=== PATIENT | female | born 1970 | race Hispanic/Latino ===

== ENCOUNTER 2017-04-14 10:02 | Outpatient (CLI) | payer BC | END 2017-04-14 10:03 | disposition home or self-care (01) | LOC: BICULT 10:02 | PROVIDERS: ATTEND Family Medicine | DX: N91.2 Amenorrhea, unspecified (principal); R11.2 Nausea with vomiting, unspecified; K76.0 Fatty (change of) liver, not elsewhere classified | CPT/HCPCS: 71046; 76700; 76856 ==

== ENCOUNTER 2017-12-09 14:30 | Outpatient (CLI) | payer BC ==
--- NOTE | 2017-12-09 17:15 | RAD ---
CHEST PA AND LATERAL: HISTORY: A 47-year-old female with a history of shortness of breath for days with chest congestion. FINDINGS: Heart size is within normal limits. The lungs are clear. No pneumonia, edema, or other acute proces s. Evidence for right-sided shoulder calcific peritendinosis. IMPRESSION: No significant acute intrathoracic disease. POS: [facility]
== END 2017-12-09 14:31 | disposition home or self-care (01) ==
LOC: BICRAD 14:30
PROVIDERS: ATTEND Family Medicine
DX: R06.02 Shortness of breath (principal)
CPT/HCPCS: 71046

== ENCOUNTER 2017-12-15 15:20 | Outpatient (CLI) | payer BC | END 2017-12-15 15:21 | disposition home or self-care (01) | LOC: BICMAMMO 15:20 | PROVIDERS: ATTEND Family Medicine | DX: Z12.31 Encounter for screening mammogram for malignant neoplasm of breast (principal) | CPT/HCPCS: 77063; 77067 ==

== ENCOUNTER 2018-03-10 07:32 | Outpatient (CLI) | payer BC ==
--- NOTE | 2018-03-10 08:13 | ULT ---
SONOGRAM RIGHT UPPER QUADRANT: Date: 03/10/18 HISTORY: Abnormal liver function tests. FINDINGS: Gallbladder has a normal appearance without evidence of stones. Common duct is 0.4 cm. Liver is diffu sely echogenic without focal mass or intrahepatic biliary dilatation. No free fluid. IMPRESSION: 1. No evidence of gallstones or biliary obstruction. 2. Hepatosteatosis. POS: [facility]
== END 2018-03-10 07:33 | disposition home or self-care (01) ==
LOC: BICULT 07:32
PROVIDERS: ATTEND Family Medicine
DX: R79.89 Other specified abnormal findings of blood chemistry (principal); K76.0 Fatty (change of) liver, not elsewhere classified
CPT/HCPCS: 76705

== ENCOUNTER 2018-12-21 15:50 | Outpatient (CLI) | payer BC ==
--- NOTE | 2018-12-21 16:26 | MMO ---
Bilateral MAMMO Bilat Screen [facility]. CLINICAL HISTORY: Patient is 48 years old and is seen for screening. The patient has no family history of breast cancer. The patient has no personal history of cancer. VIEWS: The views performed were: bilateral craniocaudal with tomosynthesis and bilateral mediolateral oblique with tomosynthesis. FILMS COMPARED: The present examination has been compared to prior imaging studies performed at [facility] on 08/13/2014, 10/01/2015, 12/02/2016 and 12/15/2017. This study has been interpreted with the assistance of computer-aided detection. MAMMOGRAM FINDINGS: The breasts are heterogeneously dense, which could obscure a lesion on mammography. There are stable benign appearing calcifications seen in both breasts. There are no suspicious masses, suspicious calcifications, or new areas of architectural distortion. IMPRESSION: THERE IS NO MAMMOGRAPHIC EVIDENCE OF MALIGNANCY. A ROUTINE FOLLOW-UP MAMMOGRAM IN 1 YEAR IS RECOMMENDED. THE RESULTS OF THIS EXAM WERE SENT TO THE PATIENT. ACR BI-RADS Category 2 - Benign finding MAMMOGRAPHY NOTE: 1. A negative mammogram report should not delay a biopsy if a dominant of clinically suspicious mass is present. 2. Approximately 10% to 15% of breast cancers are not detected by mammography. 3. Adenosis and dense breasts may obscure an underlying neoplasm. Reported by: ROLY BAKER MD Electonically Signed: [id number]
== END 2018-12-21 15:51 | disposition home or self-care (01) ==
LOC: BICMAMMO 15:50
PROVIDERS: ATTEND Family Medicine
DX: Z12.31 Encounter for screening mammogram for malignant neoplasm of breast (principal)
CPT/HCPCS: 77063; 77067

== ENCOUNTER 2020-01-17 15:47 | Outpatient (CLI) | payer BC ==
--- NOTE | 2020-01-17 16:42 | RAD ---
EXAM: CHEST TWO VIEWS 01/17/2020 4:39 PM HISTORY: Shortness of breath COMPARISON: December 09, 2017 FINDINGS: Lungs: No acute airspace consolidation. Heart: Normal in size and contour. Pulmonary Vessels: Normal. Costophrenic Angles: Clear. Pneumothorax: None. Osseous Structures: There is scattered degenerative and osteoarthritic change present. Additional Findings: None. IMPRESSION: No significant acute intrathoracic disease.
== END 2020-01-17 15:48 | disposition home or self-care (01) ==
LOC: BICRAD 15:47
PROVIDERS: ATTEND Family Medicine
DX: Z00.00 Encounter for general adult medical examination without abnormal findings (principal); R06.02 Shortness of breath
CPT/HCPCS: 71046

== ENCOUNTER 2020-04-03 08:10 | Outpatient (CLI) | payer BC ==
--- NOTE | 2020-04-03 09:22 | CT ---
CT ABDOMEN WITH AND WITHOUT CONTRAST CT PELVIS WITH AND WITHOUT CONTRAST: (CT UROGRAM) DATE: 04/03/2020 HISTORY: 49-year-old female with R 31.29 microscopic hematuria, R 10.30 lower abdominal pain, and N 39.3 stres s incontinence TECHNIQUE: Precontrast, nephrographic phase, and excretory-pyelographic phase, scans of entire abdomen and pelvi s. COMPARISON: 07/13/2012 FINDINGS: Lung bases: Clear Liver: Normal precontrast attenuation. No intrahepatic biliary ductal dilation. No portal vein thromb osis. No solid or cystic lesion. Gallbladder: No excessive distention, mural thickening, mural enhancement, or pericholecystic fluid.. Spleen: Normal. Pancreas: Normal. Adrenals: Normal. Kidneys: Normal. No calculi. Bilaterally symmetrically homogeneous nephrograms. No hydronephrosis. No definite filling defect identified in the collecting systems. Ureters: No dilation. Normal course and caliber. No calculus. No obvious filling defect. Bladder: No pathology identified. Normal, thin moran. No mass or any other filling defect identified on excretory phase. No calculus. Abdominal aorta: No aneurysm or dissection. Mild calcified atherosclerotic plaque. Small bowel: No dilation. Colon: No adjacent fat stranding. Appendix: Normal. Free air: None. Free fluid: None. Lumbar spine: No compression fracture, spondylolysis, or spondylolisthesis. Disc bulges at mid and lo wer levels. Bony pelvis: No destructive osseous lesion or fracture. IMPRESSION: Normal.
[2020-04-03] MEDS ORDERED: Iopamidol 370 76% 100 ML VIAL ONE (13:49)
== END 2020-04-03 08:11 | disposition home or self-care (01) ==
LOC: BICCT 08:10
PROVIDERS: ATTEND Urology
DX: N39.3 Stress incontinence (female) (male) (principal); R31.29 Other microscopic hematuria; R10.30 Lower abdominal pain, unspecified
CPT/HCPCS: 74178; Q9967

== ENCOUNTER 2020-04-03 08:56 | Outpatient (CLI) | payer BC ==
--- NOTE | 2020-04-03 09:50 | MMO ---
Bilateral MAMMO Bilat Screen [facility]. CLINICAL HISTORY: Patient is 49 years old and is seen for screening. The patient has no family history of breast cancer. The patient has no personal history of cancer. VIEWS: The views performed were: bilateral craniocaudal with tomosynthesis and bilateral mediolateral oblique with tomosynthesis. FILMS COMPARED: The present examination has been compared to prior imaging studies performed at [facility] on 10/01/2015, 12/02/2016, 12/15/2017 and 12/21/2018. This study has been interpreted with the assistance of computer-aided detection. MAMMOGRAM FINDINGS: The breasts are heterogeneously dense, which could obscure a lesion on mammography. There are stable benign appearing calcifications seen in both breasts. There are no suspicious masses, suspicious calcifications, or new areas of architectural distortion. IMPRESSION: THERE IS NO MAMMOGRAPHIC EVIDENCE OF MALIGNANCY. A ROUTINE FOLLOW-UP MAMMOGRAM IN 1 YEAR IS RECOMMENDED. THE RESULTS OF THIS EXAM WERE SENT TO THE PATIENT. ACR BI-RADS Category 2 - Benign finding MAMMOGRAPHY NOTE: 1. A negative mammogram report should not delay a biopsy if a dominant of clinically suspicious mass is present. 2. Approximately 10% to 15% of breast cancers are not detected by mammography. 3. Adenosis and dense breasts may obscure an underlying neoplasm. Reported by: DOMONIQUE LOMBARDI MD Electonically Signed: [id number]
== END 2020-04-03 08:57 | disposition home or self-care (01) ==
LOC: BICMAMMO 08:56
PROVIDERS: ATTEND Family Medicine
DX: Z12.31 Encounter for screening mammogram for malignant neoplasm of breast (principal)
CPT/HCPCS: 77063; 77067

== ENCOUNTER 2021-04-06 14:43 | Outpatient (CLI) | payer BC | END 2021-04-06 14:44 | disposition home or self-care (01) | LOC: BICMAMMO 14:43 | PROVIDERS: ATTEND Family Medicine | DX: Z12.31 Encounter for screening mammogram for malignant neoplasm of breast (principal) | CPT/HCPCS: 77063; 77067 ==

== ENCOUNTER 2022-09-17 14:48 | Outpatient (CLI) | payer BC | END 2022-09-17 14:49 | disposition home or self-care (01) | LOC: BICMAMMO 14:48 | PROVIDERS: ATTEND Family Medicine | DX: Z12.31 Encounter for screening mammogram for malignant neoplasm of breast (principal) | CPT/HCPCS: 77063; 77067 ==